=== PATIENT | male | born 1995 | race African-American/Black ===

== ENCOUNTER 2017-07-08 23:23 | Emergency (ER) | payer OTHER ==
[~2017-07-08] VITALS: Ht 180.3 cm; Wt 81.6 kg
[2017-07-08 23:42] VITALS: BP 143/87
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
--- NOTE | 2017-07-09 00:48 | RAD ---
INDICATION: FALL FROM FORKLIFT ONTO GROUND NECK AND L SHOULDER PAIN TECHNIQUE: Axial CT images of the cervical spine were obtained. Sagittal and coronal reformats were reviewed. One or more of the following individualized dose reduction techniques were utilized for this examination: 1. Automated exposure control; 2. Adjustment of the mA and/or kV according to patient size; 3. Use of iterative reconstruction technique. COMPARISON: None. FINDINGS: There is normal alignment. Mild wedging of the C4, C5 and C6 vertebral bodies. The prevertebral soft tissue is normal. IMPRESSION: 1. Mild wedging of C4, C5 and C6 vertebral bodies. This could be congenital or secondary to old injury but would correlate for point tenderness in the region to ensure that there is not an acute cause. If age is unclear clinically MRI can better evaluate. Electronically signed by: Luis Mathews MD (07/09/2017 12:44 AM) [facility]
[2017-07-09] MEDS ORDERED: NAPR500T8 PO (01:01)
[2017-07-09] MEDS ORDERED: CYCL10TA2 PO (01:01)
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
== END 2017-07-09 01:06 | disposition home or self-care (01) ==
LOC: ER 23:23
DX: S13.4XXA Sprain of ligaments of cervical spine, initial encounter (principal); M25.512 Pain in left shoulder; W17.89XA Other fall from one level to another, initial encounter; Y93.89 Activity, other specified; Y92.89 Other specified places as the place of occurrence of the external cause; Y99.8 Other external cause status
CPT/HCPCS: 72125; 73030; 99284-25